=== PATIENT | female | born 1975 | race Caucasian/White ===

== ENCOUNTER 2018-10-08 10:10 | Day surgery (SDC) | payer MEDICARE ==
[~2018-10-08 10:10] MED LIST: ACET325 PO; ALBU90OI INH; ASPI81CH PO; CEFP200 PO; DOC250 PO; Fruity C250 MG PO; HYDR1TAB94 PO; Hair, Skin & N1 EACH PO; Juven1 EACH PO; ONDA4ODT PO; PANT40 PO; POTA20LUD PO; Preparation H C26 GM PO; SACC250C PO; ZINC15 PO
[2018-10-08] MEDS ORDERED: FURO40 PO (21:23)
[2018-10-09] MEDS ORDERED: TIZANIDINE HCL6 MG PO (03:20)
[2018-10-09] MEDS ORDERED: SACC250C PO (16:03)
[2018-10-09] MEDS ORDERED: CEPH500 PO (16:04)
[2018-10-16] MEDS ORDERED: Aspirin EC81 MG PO (17:03)
[2018-10-18] MEDS ORDERED: Geri-Hydrolac140 GM TOP (13:14)
[2018-10-18] MEDS ORDERED: CEPH500 PO (13:15)
[2018-10-18] MEDS ORDERED: FURO40 PO (13:20)
[2018-10-18] MEDS ORDERED: LEVO750 PO (13:21)
[2018-10-18] MEDS ORDERED: K-Dur20 MEQ PO (13:22)
== END 2018-10-08 12:00 | disposition home or self-care (01) ==
LOC: WOUND 10:10
DX: L97.212 Non-pressure chronic ulcer of right calf with fat layer exposed (principal); I87.2 Venous insufficiency (chronic) (peripheral); I73.9 Peripheral vascular disease, unspecified; L03.115 Cellulitis of right lower limb; Z88.0 Allergy status to penicillin; Z88.8 Allergy status to other drugs, medicaments and biological substances; E66.01 Morbid (severe) obesity due to excess calories
CPT/HCPCS: G0463

== ENCOUNTER 2018-10-15 00:34 | Day surgery (SDC) | payer MEDICARE ==
[~2018-10-15 00:34] MED LIST changes: +CEPH500 PO; +FURO40 PO; +TIZANIDINE HCL6 MG PO
[2018-10-16] MEDS ORDERED: Aspirin EC81 MG PO (17:03)
[2018-10-18] MEDS ORDERED: Geri-Hydrolac140 GM TOP (13:14)
[2018-10-18] MEDS ORDERED: CEPH500 PO (13:15)
[2018-10-18] MEDS ORDERED: FURO40 PO (13:20)
[2018-10-18] MEDS ORDERED: LEVO750 PO (13:21)
[2018-10-18] MEDS ORDERED: K-Dur20 MEQ PO (13:22)
== END 2018-10-15 22:35 | disposition home or self-care (01) ==
LOC: WOUND 00:34
DX: L97.212 Non-pressure chronic ulcer of right calf with fat layer exposed (principal); I73.9 Peripheral vascular disease, unspecified; I83.11 Varicose veins of right lower extremity with inflammation; E66.01 Morbid (severe) obesity due to excess calories; Z88.0 Allergy status to penicillin; Z88.8 Allergy status to other drugs, medicaments and biological substances
CPT/HCPCS: G0463

== ENCOUNTER 2018-10-22 00:18 | Day surgery (SDC) | payer MEDICARE, OTHER ==
[~2018-10-22 00:18] MED LIST changes: +Aspirin EC81 MG PO; +Geri-Hydrolac140 GM TOP; +K-Dur20 MEQ PO; +LEVO750 PO
[2018-10-22] MEDS ORDERED: TRAZ50 PO (18:13)
[2018-10-22] MEDS ORDERED: Ferosul325 MG PO (18:13)
[2018-10-22] MEDS ORDERED: LISI5 PO (18:14)
[2018-10-22] MEDS ORDERED: ONDA4 PO (18:15)
[2018-10-22] MEDS ORDERED: Gentak3.5 GM OP (18:16)
[2018-10-22] MEDS ORDERED: Ultram50 MG PO (18:56)
[2018-10-22] MEDS ORDERED: Cleocin HCl300 MG PO (18:56)
== END 2018-10-22 22:39 | disposition home or self-care (01) ==
LOC: WOUND 00:18
DX: Z48.00 Encounter for change or removal of nonsurgical wound dressing (principal); L97.212 Non-pressure chronic ulcer of right calf with fat layer exposed; I87.2 Venous insufficiency (chronic) (peripheral); I73.9 Peripheral vascular disease, unspecified; I83.11 Varicose veins of right lower extremity with inflammation; L03.115 Cellulitis of right lower limb
CPT/HCPCS: G0463

== ENCOUNTER 2018-10-22 13:57 | Emergency (ER) | payer MEDICARE, OTHER ==
[~2018-10-22] VITALS: Ht 167.6 cm; Wt 156.0 kg
[2018-10-22 15:33] LABS: BASOPHILS ABSOLUTE AUTO 0.02 K/mm3 (0.00-0.23); BASOPHILS PERCENT AUTO 0 % (0-2); EOSINOPHILS ABSOLUTE AUTO 0.17 K/mm3 (0.00-0.68); EOSINOPHILS PERCENT AUTO 2 % (0-6); Hematocrit 37.3 % (33.0-51.0); Hemoglobin 10.8 g/dL (11.5-16.0); IMMATURE GRAN ABSOLUTE AUTO 0.03 K/mm3 (0.00-0.10); IMMATURE GRAN PERCENT AUTO 0 % (0-1); LYMPHOCYTES ABSOLUTE AUTO 1.26 K/mm3 (0.84-5.20); LYMPHOCYTES PERCENT AUTO 17 % (21-46); MONOCYTES ABSOLUTE AUTO 0.74 K/mm3 (0.16-1.47); MONOCYTES PERCENT AUTO 10 % (4-13); Mean Corpuscular HGB 23.3 pg (26.0-34.0); Mean Corpuscular Volume 81 fL (80-100); Mean Platelet Volume 10.3 fL (9.1-12.4); NEUTROPHILS ABSOLUTE AUTO 5.36 K/mm3 (1.96-9.15); NEUTROPHILS PERCENT AUTO 71 % (41-73); Platelet Count 317 K/mm3 (150-400); RDW Coefficient Variation 17.2 % (11.7-14.2); RDW Standard Deviation 50.2 fL (35.1-46.3); Red Blood Cell Count 4.63 M/mm3 (3.80-5.20); White Blood Cell Count 7.58 K/mm3 (4.00-11.30)
[2018-10-22 15:46] LABS: Alanine Aminotransfer (ALT/SGP 25 U/L (12-78); Albumin, Blood 3.3 g/dL (3.4-5.0); Albumin/Globulin Ratio 0.7 (0.8-1.8); Alk Phos 120 U/L (50-136); Anion Gap 10 mmol/L (6-16); Aspartate Aminotrans (AST/SGOT 20 U/L (12-37); Bilirubin, Total 0.4 mg/dL (0.1-1.0); Blood Urea Nitrogen 14 mg/dL (8-24); CO2, Blood 24 mmol/L (21-32); Calcium, Blood 8.8 mg/dL (8.5-10.1); Chloride, Blood 108 mmol/L (98-108); Creatinine, Blood 0.64 mg/dL (0.40-1.00); Globulin, Blood 4.7 g/dL (2.2-4.0); Glomerular Filtration Rate >60 (60-); Glucose, Blood 86 mg/dL (70-99); Sodium, Blood 142 mmol/L (136-145)
[2018-10-22] MEDS ORDERED: Ferosul325 MG PO (18:13)
[2018-10-22] MEDS ORDERED: TRAZ50 PO (18:13)
[2018-10-22] MEDS ORDERED: LISI5 PO (18:14)
[2018-10-22] MEDS ORDERED: ONDA4 PO (18:15)
[2018-10-22] MEDS ORDERED: Gentak3.5 GM OP (18:16)
[2018-10-22] MEDS ORDERED: Cleocin HCl300 MG PO (18:56)
[2018-10-22] MEDS ORDERED: Ultram50 MG PO (18:56)
== END 2018-10-22 19:21 | disposition home or self-care (01) ==
LOC: ER 13:57
PROVIDERS: Physician Assistant
DX: L03.115 Cellulitis of right lower limb (principal); E66.01 Morbid (severe) obesity due to excess calories; J44.9 Chronic obstructive pulmonary disease, unspecified; K21.9 Gastro-esophageal reflux disease without esophagitis; Q24.9 Congenital malformation of heart, unspecified; Z88.0 Allergy status to penicillin; Z86.73 Personal history of transient ischemic attack (TIA), and cerebral infarction without residual deficits; Z91.018 Allergy to other foods; Z88.5 Allergy status to narcotic agent; Z88.8 Allergy status to other drugs, medicaments and biological substances; Z79.899 Other long term (current) drug therapy; Z79.82 Long term (current) use of aspirin; Z68.43 Body mass index [BMI] 50.0-59.9, adult
CPT/HCPCS: 36415; 80053; 85025; 99283

== ENCOUNTER 2018-10-24 10:59 | Inpatient (IN) | payer MEDICARE, OTHER ==
[~2018-10-24] VITALS: Ht 167.6 cm; Wt 165.1 kg
[~2018-10-24 10:59] MED LIST changes: +Cleocin HCl300 MG PO; +Ferosul325 MG PO; +Gentak3.5 GM OP; +LISI5 PO; +ONDA4 PO; +TRAZ50 PO; +Ultram50 MG PO
[2018-10-24 14:06] LABS: BASOPHILS ABSOLUTE AUTO 0.03 K/mm3 (0.00-0.23); BASOPHILS PERCENT AUTO 0 % (0-2); EOSINOPHILS ABSOLUTE AUTO 0.17 K/mm3 (0.00-0.68); EOSINOPHILS PERCENT AUTO 2 % (0-6); Hematocrit 32.2 % (33.0-51.0); Hemoglobin 9.2 g/dL (11.5-16.0); IMMATURE GRAN ABSOLUTE AUTO 0.03 K/mm3 (0.00-0.10); IMMATURE GRAN PERCENT AUTO 0 % (0-1); LYMPHOCYTES ABSOLUTE AUTO 1.17 K/mm3 (0.84-5.20); LYMPHOCYTES PERCENT AUTO 17 % (21-46); MONOCYTES ABSOLUTE AUTO 0.51 K/mm3 (0.16-1.47); MONOCYTES PERCENT AUTO 7 % (4-13); Mean Corpuscular HGB 22.8 pg (26.0-34.0); Mean Corpuscular HGB Conc 28.6 g/dL (31.5-36.5); Mean Corpuscular Volume 80 fL (80-100); Mean Platelet Volume 10.3 fL (9.1-12.4); NEUTROPHILS ABSOLUTE AUTO 5.13 K/mm3 (1.96-9.15); NEUTROPHILS PERCENT AUTO 73 % (41-73); Platelet Count 275 K/mm3 (150-400); Red Blood Cell Count 4.03 M/mm3 (3.80-5.20); White Blood Cell Count 7.04 K/mm3 (4.00-11.30)
[2018-10-24 14:24] LABS: Alanine Aminotransfer (ALT/SGP 27 U/L (12-78); Albumin, Blood 3.1 g/dL (3.4-5.0); Albumin/Globulin Ratio 0.7 (0.8-1.8); Alk Phos 114 U/L (50-136); Anion Gap 7 mmol/L (6-16); Aspartate Aminotrans (AST/SGOT 25 U/L (12-37); Bilirubin, Total 0.4 mg/dL (0.1-1.0); Blood Urea Nitrogen 14 mg/dL (8-24); CO2, Blood 27 mmol/L (21-32); Calcium, Blood 8.6 mg/dL (8.5-10.1); Chloride, Blood 107 mmol/L (98-108); Creatinine, Blood 0.64 mg/dL (0.40-1.00); Globulin, Blood 4.3 g/dL (2.2-4.0); Glomerular Filtration Rate >60 (60-); Glucose, Blood 82 mg/dL (70-99); Sodium, Blood 141 mmol/L (136-145); Total Protein, Blood 7.4 g/dL (6.4-8.2)
[2018-10-25 04:43] LABS: BASOPHILS ABSOLUTE AUTO 0.01 K/mm3 (0.00-0.23); BASOPHILS PERCENT AUTO 0 % (0-2); EOSINOPHILS ABSOLUTE AUTO 0.22 K/mm3 (0.00-0.68); EOSINOPHILS PERCENT AUTO 5 % (0-6); Hematocrit 27.8 % (33.0-51.0); IMMATURE GRAN ABSOLUTE AUTO 0.01 K/mm3 (0.00-0.10); IMMATURE GRAN PERCENT AUTO 0 % (0-1); LYMPHOCYTES ABSOLUTE AUTO 0.67 K/mm3 (0.84-5.20); LYMPHOCYTES PERCENT AUTO 14 % (21-46); MONOCYTES ABSOLUTE AUTO 0.39 K/mm3 (0.16-1.47); MONOCYTES PERCENT AUTO 8 % (4-13); Mean Corpuscular HGB 22.9 pg (26.0-34.0); Mean Corpuscular HGB Conc 28.8 g/dL (31.5-36.5); Mean Corpuscular Volume 79 fL (80-100); Mean Platelet Volume 10.2 fL (9.1-12.4); NEUTROPHILS ABSOLUTE AUTO 3.59 K/mm3 (1.96-9.15); NEUTROPHILS PERCENT AUTO 73 % (41-73); Platelet Count 244 K/mm3 (150-400); RDW Coefficient Variation 17.2 % (11.7-14.2); RDW Standard Deviation 49.3 fL (35.1-46.3); White Blood Cell Count 4.89 K/mm3 (4.00-11.30)
[2018-10-25 08:14] LABS: Anion Gap 8 mmol/L (6-16); Blood Urea Nitrogen 13 mg/dL (8-24); Bun/Creatinine Ratio 20.4 (12.0-20.0); CO2, Blood 26 mmol/L (21-32); Calcium, Blood 8.2 mg/dL (8.5-10.1); Chloride, Blood 108 mmol/L (98-108); Creatinine, Blood 0.64 mg/dL (0.40-1.00); Glomerular Filtration Rate >60 (60-); Glucose, Blood 110 mg/dL (70-99); Potassium, Blood 3.9 mmol/L (3.5-5.5); Sodium, Blood 142 mmol/L (136-145)
[2018-10-26 16:33] LABS: Vancomycin, Trough 26.5 ug/mL (5.0-10.0)
[2018-10-26 19:37] LABS: Source, Urine Clean Catch
[2018-10-26 19:48] LABS: Appearance, Urine Clear (Clear); Bilirubin, Urine Neg (Neg); Blood, Urine Neg (Neg); Color, Urine Yellow (P-Yellow); Glucose Qualitative, Urine Neg (Neg); Ketones, Urine Neg (Neg); Leukocyte Esterase, Urine Neg (Neg); Nitrite, Urine Neg (Neg); Protein, Urine Neg (Neg); Specific Gravity, Urine 1.015 (1.003-1.022); Urobilinogen, Urine NORM (Normal); pH, Urine 6.5 (5.0-8.0)
[2018-10-27 22:18] LABS: Vancomycin, Trough 18.1 ug/mL (5.0-10.0)
[2018-10-28 06:04] LABS: BASOPHILS ABSOLUTE AUTO 0.02 K/mm3 (0.00-0.23); BASOPHILS PERCENT AUTO 0 % (0-2); EOSINOPHILS ABSOLUTE AUTO 0.19 K/mm3 (0.00-0.68); EOSINOPHILS PERCENT AUTO 3 % (0-6); Hemoglobin 8.5 g/dL (11.5-16.0); IMMATURE GRAN ABSOLUTE AUTO 0.04 K/mm3 (0.00-0.10); IMMATURE GRAN PERCENT AUTO 1 % (0-1); LYMPHOCYTES ABSOLUTE AUTO 0.79 K/mm3 (0.84-5.20); LYMPHOCYTES PERCENT AUTO 12 % (21-46); MONOCYTES ABSOLUTE AUTO 0.53 K/mm3 (0.16-1.47); MONOCYTES PERCENT AUTO 8 % (4-13); Mean Corpuscular HGB Conc 28.3 g/dL (31.5-36.5); Mean Corpuscular Volume 81 fL (80-100); Mean Platelet Volume 10.2 fL (9.1-12.4); NEUTROPHILS ABSOLUTE AUTO 4.86 K/mm3 (1.96-9.15); NEUTROPHILS PERCENT AUTO 76 % (41-73); Platelet Count 248 K/mm3 (150-400); RDW Coefficient Variation 17.2 % (11.7-14.2); RDW Standard Deviation 50.1 fL (35.1-46.3); White Blood Cell Count 6.43 K/mm3 (4.00-11.30)
[2018-10-28 06:21] LABS: Anion Gap 8 mmol/L (6-16); Blood Urea Nitrogen 15 mg/dL (8-24); Bun/Creatinine Ratio 24.3 (12.0-20.0); CO2, Blood 25 mmol/L (21-32); Calcium, Blood 8.3 mg/dL (8.5-10.1); Chloride, Blood 105 mmol/L (98-108); Creatinine, Blood 0.62 mg/dL (0.40-1.00); Glomerular Filtration Rate >60 (60-); Glucose, Blood 110 mg/dL (70-99); Sodium, Blood 138 mmol/L (136-145)
[2018-10-29 08:24] LABS: Vancomycin, Trough 4.5 ug/mL (5.0-10.0)
[2018-10-31 05:07] LABS: BASOPHILS ABSOLUTE AUTO 0.01 K/mm3 (0.00-0.23); BASOPHILS PERCENT AUTO 0 % (0-2); EOSINOPHILS ABSOLUTE AUTO 0.19 K/mm3 (0.00-0.68); EOSINOPHILS PERCENT AUTO 3 % (0-6); Hematocrit 29.2 % (33.0-51.0); Hemoglobin 8.5 g/dL (11.5-16.0); IMMATURE GRAN ABSOLUTE AUTO 0.02 K/mm3 (0.00-0.10); IMMATURE GRAN PERCENT AUTO 0 % (0-1); LYMPHOCYTES ABSOLUTE AUTO 0.83 K/mm3 (0.84-5.20); LYMPHOCYTES PERCENT AUTO 14 % (21-46); MONOCYTES ABSOLUTE AUTO 0.61 K/mm3 (0.16-1.47); MONOCYTES PERCENT AUTO 10 % (4-13); Mean Corpuscular HGB 23.3 pg (26.0-34.0); Mean Corpuscular HGB Conc 29.1 g/dL (31.5-36.5); Mean Corpuscular Volume 80 fL (80-100); Mean Platelet Volume 10.2 fL (9.1-12.4); NEUTROPHILS ABSOLUTE AUTO 4.21 K/mm3 (1.96-9.15); NEUTROPHILS PERCENT AUTO 72 % (41-73); Platelet Count 244 K/mm3 (150-400); RDW Coefficient Variation 17.2 % (11.7-14.2); RDW Standard Deviation 49.6 fL (35.1-46.3); Red Blood Cell Count 3.65 M/mm3 (3.80-5.20); White Blood Cell Count 5.87 K/mm3 (4.00-11.30)
[2018-10-31 05:28] LABS: Anion Gap 8 mmol/L (6-16); Blood Urea Nitrogen 18 mg/dL (8-24); Bun/Creatinine Ratio 28.5 (12.0-20.0); CO2, Blood 28 mmol/L (21-32); Calcium, Blood 8.5 mg/dL (8.5-10.1); Chloride, Blood 103 mmol/L (98-108); Creatinine, Blood 0.63 mg/dL (0.40-1.00); Glomerular Filtration Rate >60 (60-); Glucose, Blood 97 mg/dL (70-99); Potassium, Blood 3.8 mmol/L (3.5-5.5); Sodium, Blood 139 mmol/L (136-145)
[2018-11-01] MEDS ORDERED: K-TAB ER20 MEQ PO (11:45)
[2018-11-01] MEDS ORDERED: TRAM50 PO (11:46)
[2018-11-01] MEDS ORDERED: Juven1 EACH PO (11:47)
[2018-11-01] MEDS ORDERED: Pedi-Dri 100,0060 GM TOP (11:48)
[2018-11-01] MEDS ORDERED: UNNA-FLEX1 EACH TOP (11:48)
== END 2018-11-01 16:00 | disposition home or self-care (01) | DRG 603 ==
LOC: ER 10:59 → MEDS 14:47 → ENPENDDIS 11-01 10:00 → MEDS 11-01 16:00
PROVIDERS: Emergency Medicine; Hospitalist; Internal Medicine
DX: L03.115 Cellulitis of right lower limb (principal); Z68.43 Body mass index [BMI] 50.0-59.9, adult; L97.919 Non-pressure chronic ulcer of unspecified part of right lower leg with unspecified severity; I89.0 Lymphedema, not elsewhere classified; E66.01 Morbid (severe) obesity due to excess calories; J44.9 Chronic obstructive pulmonary disease, unspecified; Q24.9 Congenital malformation of heart, unspecified; K44.9 Diaphragmatic hernia without obstruction or gangrene; K21.9 Gastro-esophageal reflux disease without esophagitis; K52.9 Noninfective gastroenteritis and colitis, unspecified; D50.9 Iron deficiency anemia, unspecified; Z86.14 Personal history of Methicillin resistant Staphylococcus aureus infection; Z79.82 Long term (current) use of aspirin
CPT/HCPCS: 36415; 73590; 73610; 80048; 80053; 80202; 81003; 82565; 83605; 85025; 87040; 87070; 87205; 93922; 94640; 94760; 96365; 96366; 99283; 99284-25; G0463; J0696; J1650; J1956; J3370; J7050

== ENCOUNTER 2018-11-12 14:34 | Emergency (ER) | payer MEDICARE, OTHER ==
[~2018-11-12] VITALS: Ht 167.6 cm; Wt 154.2 kg
[~2018-11-12 14:34] MED LIST changes: +K-TAB ER20 MEQ PO; +Pedi-Dri 100,0060 GM TOP; +TRAM50 PO; +UNNA-FLEX1 EACH TOP
[2018-11-12 15:22] LABS: BASOPHILS ABSOLUTE AUTO 0.03 K/mm3 (0.00-0.23); BASOPHILS PERCENT AUTO 0 % (0-2); EOSINOPHILS ABSOLUTE AUTO 0.19 K/mm3 (0.00-0.68); EOSINOPHILS PERCENT AUTO 3 % (0-6); Hematocrit 36.5 % (33.0-51.0); Hemoglobin 10.5 g/dL (11.5-16.0); IMMATURE GRAN ABSOLUTE AUTO 0.04 K/mm3 (0.00-0.10); IMMATURE GRAN PERCENT AUTO 1 % (0-1); LYMPHOCYTES ABSOLUTE AUTO 1.09 K/mm3 (0.84-5.20); LYMPHOCYTES PERCENT AUTO 14 % (21-46); MONOCYTES ABSOLUTE AUTO 0.61 K/mm3 (0.16-1.47); MONOCYTES PERCENT AUTO 8 % (4-13); Mean Corpuscular HGB 23.5 pg (26.0-34.0); Mean Corpuscular HGB Conc 28.8 g/dL (31.5-36.5); Mean Corpuscular Volume 82 fL (80-100); NEUTROPHILS ABSOLUTE AUTO 5.69 K/mm3 (1.96-9.15); NEUTROPHILS PERCENT AUTO 74 % (41-73); Platelet Count 262 K/mm3 (150-400); RDW Coefficient Variation 17.2 % (11.7-14.2); RDW Standard Deviation 49.3 fL (35.1-46.3); Red Blood Cell Count 4.47 M/mm3 (3.80-5.20); White Blood Cell Count 7.65 K/mm3 (4.00-11.30)
[2018-11-12 15:49] LABS: Alanine Aminotransfer (ALT/SGP 33 U/L (12-78); Albumin, Blood 3.4 g/dL (3.4-5.0); Albumin/Globulin Ratio 0.7 (0.8-1.8); Alk Phos 128 U/L (50-136); Anion Gap 9 mmol/L (6-16); Aspartate Aminotrans (AST/SGOT 27 U/L (12-37); Bilirubin, Total 0.4 mg/dL (0.1-1.0); Blood Urea Nitrogen 18 mg/dL (8-24); Bun/Creatinine Ratio 25.5 (12.0-20.0); CO2, Blood 23 mmol/L (21-32); Chloride, Blood 106 mmol/L (98-108); Creatinine, Blood 0.71 mg/dL (0.40-1.00); Globulin, Blood 4.7 g/dL (2.2-4.0); Glomerular Filtration Rate >60 (60-); Glucose, Blood 96 mg/dL (70-99); Potassium, Blood 3.8 mmol/L (3.5-5.5); Sodium, Blood 138 mmol/L (136-145); Total Protein, Blood 8.1 g/dL (6.4-8.2)
[2018-11-12 16:39] LABS: Source, Urine Clean Catch
[2018-11-12 16:41] LABS: Appearance, Urine Hazy (Clear); Bilirubin, Urine Neg (Neg); Blood, Urine Neg (Neg); Color, Urine Yellow (P-Yellow); Glucose Qualitative, Urine Neg (Neg); Ketones, Urine 1+ (Neg); Leukocyte Esterase, Urine 2+ (Neg); Nitrite, Urine Neg (Neg); Protein, Urine 2+ (Neg); Urobilinogen, Urine NORM (Normal)
[2018-11-12 16:43] LABS: Bacteria Mod /hpf; Red Blood Cells, Urine 0-2 /hpf (0-2); Squamous Epithelial Cells Few /hpf (Few)
[2018-11-12] MEDS ORDERED: HYDR1TAB94 PO (17:29)
[2018-11-12] MEDS ORDERED: Tylenol325 MG PO (17:29)
== END 2018-11-12 17:55 | disposition home or self-care (01) ==
LOC: ER 14:34
PROVIDERS: Emergency Medicine; Physician Assistant
DX: I89.0 Lymphedema, not elsewhere classified (principal); K21.9 Gastro-esophageal reflux disease without esophagitis; J44.9 Chronic obstructive pulmonary disease, unspecified; E66.01 Morbid (severe) obesity due to excess calories; Z86.73 Personal history of transient ischemic attack (TIA), and cerebral infarction without residual deficits; Z88.0 Allergy status to penicillin; Z88.8 Allergy status to other drugs, medicaments and biological substances; Z88.5 Allergy status to narcotic agent; Z79.82 Long term (current) use of aspirin; Z79.899 Other long term (current) drug therapy
CPT/HCPCS: 36415; 80053; 81001; 85025; 87077; 87086; 87186; 99283

== ENCOUNTER 2018-11-18 00:53 | Day surgery (SDC) | payer MEDICARE, OTHER ==
[~2018-11-18 00:53] MED LIST changes: +Tylenol325 MG PO
== END 2018-11-18 22:34 | disposition home or self-care (01) ==
LOC: WOUND 00:53
DX: L03.115 Cellulitis of right lower limb (principal); M79.661 Pain in right lower leg; I83.11 Varicose veins of right lower extremity with inflammation; I73.9 Peripheral vascular disease, unspecified; Z79.01 Long term (current) use of anticoagulants
CPT/HCPCS: G0463

== ENCOUNTER 2018-11-25 13:03 | Emergency (ER) | payer MEDICARE, OTHER ==
[~2018-11-25] VITALS: Ht 167.6 cm; Wt 154.2 kg
[2018-11-25 14:04] LABS: BASOPHILS ABSOLUTE AUTO 0.02 K/mm3 (0.00-0.23); BASOPHILS PERCENT AUTO 0 % (0-2); EOSINOPHILS ABSOLUTE AUTO 0.13 K/mm3 (0.00-0.68); EOSINOPHILS PERCENT AUTO 2 % (0-6); Hematocrit 37.2 % (33.0-51.0); Hemoglobin 10.9 g/dL (11.5-16.0); IMMATURE GRAN ABSOLUTE AUTO 0.02 K/mm3 (0.00-0.10); IMMATURE GRAN PERCENT AUTO 0 % (0-1); LYMPHOCYTES ABSOLUTE AUTO 0.99 K/mm3 (0.84-5.20); LYMPHOCYTES PERCENT AUTO 14 % (21-46); MONOCYTES ABSOLUTE AUTO 0.51 K/mm3 (0.16-1.47); MONOCYTES PERCENT AUTO 7 % (4-13); Mean Corpuscular HGB 23.3 pg (26.0-34.0); Mean Corpuscular HGB Conc 29.3 g/dL (31.5-36.5); Mean Corpuscular Volume 80 fL (80-100); Mean Platelet Volume 9.7 fL (9.1-12.4); NEUTROPHILS ABSOLUTE AUTO 5.37 K/mm3 (1.96-9.15); NEUTROPHILS PERCENT AUTO 76 % (41-73); Platelet Count 320 K/mm3 (150-400); RDW Coefficient Variation 16.5 % (11.7-14.2); RDW Standard Deviation 47.2 fL (35.1-46.3); Red Blood Cell Count 4.68 M/mm3 (3.80-5.20); White Blood Cell Count 7.04 K/mm3 (4.00-11.30)
[2018-11-25 14:29] LABS: Alanine Aminotransfer (ALT/SGP 31 U/L (12-78); Albumin, Blood 3.3 g/dL (3.4-5.0); Albumin/Globulin Ratio 0.7 (0.8-1.8); Alk Phos 125 U/L (50-136); Anion Gap 9 mmol/L (6-16); Aspartate Aminotrans (AST/SGOT 22 U/L (12-37); Bilirubin, Total 0.9 mg/dL (0.1-1.0); Blood Urea Nitrogen 9 mg/dL (8-24); Bun/Creatinine Ratio 13.8 (12.0-20.0); CO2, Blood 27 mmol/L (21-32); Calcium, Blood 8.8 mg/dL (8.5-10.1); Chloride, Blood 105 mmol/L (98-108); Creatinine, Blood 0.65 mg/dL (0.40-1.00); Globulin, Blood 4.9 g/dL (2.2-4.0); Glomerular Filtration Rate >60 (60-); Glucose, Blood 91 mg/dL (70-99); Potassium, Blood 3.4 mmol/L (3.5-5.5); Sodium, Blood 141 mmol/L (136-145); Total Protein, Blood 8.2 g/dL (6.4-8.2)
== END 2018-11-25 18:29 | disposition home or self-care (01) ==
LOC: ER 13:03
PROVIDERS: Physician Assistant
DX: I89.0 Lymphedema, not elsewhere classified (principal); M79.89 Other specified soft tissue disorders; E66.01 Morbid (severe) obesity due to excess calories; R10.13 Epigastric pain; R11.2 Nausea with vomiting, unspecified; J44.9 Chronic obstructive pulmonary disease, unspecified; Z88.0 Allergy status to penicillin; Z88.5 Allergy status to narcotic agent; Z88.8 Allergy status to other drugs, medicaments and biological substances; Z79.899 Other long term (current) drug therapy; Z79.82 Long term (current) use of aspirin; Z87.891 Personal history of nicotine dependence; Z68.43 Body mass index [BMI] 50.0-59.9, adult
CPT/HCPCS: 36415; 80053; 85025; 96374; 99284-25; J2405

== ENCOUNTER 2018-11-28 13:15 | Inpatient (IN) | payer MEDICARE, OTHER ==
[~2018-11-28] VITALS: Ht 167.6 cm; Wt 160.9 kg
[2018-11-28 13:41] LABS: Source, Urine Peds U Bag
[2018-11-28 13:52] LABS: Appearance, Urine Hazy (Clear); Bilirubin, Urine Neg (Neg); Blood, Urine Neg (Neg); Color, Urine Yellow (P-Yellow); Glucose Qualitative, Urine Neg (Neg); Ketones, Urine 1+ (Neg); Leukocyte Esterase, Urine 1+ (Neg); Nitrite, Urine Neg (Neg); Protein, Urine 2+ (Neg); Specific Gravity, Urine 1.025 (1.003-1.022); Urobilinogen, Urine 2+ (Normal); pH, Urine 6.5 (5.0-8.0)
[2018-11-28 14:40] LABS: Calcium Oxalate Crystals Many /hpf; Red Blood Cells, Urine 0-2 /hpf (0-2)
[2018-11-28 14:41] LABS: Bacteria Few /hpf; Squamous Epithelial Cells Few /hpf (Few)
[2018-11-28 15:22] LABS: BASOPHILS ABSOLUTE AUTO 0.02 K/mm3 (0.00-0.23); BASOPHILS PERCENT AUTO 0 % (0-2); EOSINOPHILS ABSOLUTE AUTO 0.15 K/mm3 (0.00-0.68); EOSINOPHILS PERCENT AUTO 2 % (0-6); Hematocrit 37.6 % (33.0-51.0); Hemoglobin 10.9 g/dL (11.5-16.0); IMMATURE GRAN ABSOLUTE AUTO 0.02 K/mm3 (0.00-0.10); IMMATURE GRAN PERCENT AUTO 0 % (0-1); LYMPHOCYTES PERCENT AUTO 16 % (21-46); MONOCYTES ABSOLUTE AUTO 0.44 K/mm3 (0.16-1.47); MONOCYTES PERCENT AUTO 7 % (4-13); Mean Corpuscular HGB 23.2 pg (26.0-34.0); Mean Corpuscular Volume 80 fL (80-100); NEUTROPHILS ABSOLUTE AUTO 4.59 K/mm3 (1.96-9.15); NEUTROPHILS PERCENT AUTO 74 % (41-73); Platelet Count 301 K/mm3 (150-400); RDW Coefficient Variation 16.1 % (11.7-14.2); RDW Standard Deviation 46.9 fL (35.1-46.3); Red Blood Cell Count 4.69 M/mm3 (3.80-5.20); White Blood Cell Count 6.22 K/mm3 (4.00-11.30)
[2018-11-28 15:51] LABS: Alanine Aminotransfer (ALT/SGP 34 U/L (12-78); Albumin, Blood 3.2 g/dL (3.4-5.0); Albumin/Globulin Ratio 0.7 (0.8-1.8); Alk Phos 142 U/L (50-136); Anion Gap 8 mmol/L (6-16); Aspartate Aminotrans (AST/SGOT 31 U/L (12-37); Bilirubin, Total 0.5 mg/dL (0.1-1.0); Blood Urea Nitrogen 14 mg/dL (8-24); Bun/Creatinine Ratio 18.3 (12.0-20.0); CO2, Blood 25 mmol/L (21-32); Calcium, Blood 8.8 mg/dL (8.5-10.1); Chloride, Blood 107 mmol/L (98-108); Creatinine, Blood 0.77 mg/dL (0.40-1.00); Globulin, Blood 4.7 g/dL (2.2-4.0); Glomerular Filtration Rate >60 (60-); Glucose, Blood 85 mg/dL (70-99); Potassium, Blood 3.9 mmol/L (3.5-5.5); Sodium, Blood 140 mmol/L (136-145); Total Protein, Blood 7.9 g/dL (6.4-8.2)
[2018-11-28] MEDS ORDERED: FURO20 PO (16:19)
--- NOTE | 2018-11-28 18:45 | NUR ---
RECIEVED REPORT FROM ED RN WILLIAM. PER REPORT PT HAS BLISTERS THAT HAVE OPENED AND SATURATED THE PT WHOLE BED. PT IS VERY LARGE AND ASKED ED TO HOLD THE PT UNTIL A BARIATRIC BED CAN BE LOCATED. [facility] TO TRY TO LOCATE A BARIATRIC BED. WILL PASS ON THE REPORT RECIEVED TO THE NIGHT RN.
[2018-11-28] MEDS ORDERED: CYCL10 PO (19:58)
[2018-11-29 05:35] LABS: BASOPHILS ABSOLUTE AUTO 0.01 K/mm3 (0.00-0.23); BASOPHILS PERCENT AUTO 0 % (0-2); EOSINOPHILS ABSOLUTE AUTO 0.15 K/mm3 (0.00-0.68); EOSINOPHILS PERCENT AUTO 3 % (0-6); Hematocrit 29.4 % (33.0-51.0); Hemoglobin 8.4 g/dL (11.5-16.0); IMMATURE GRAN ABSOLUTE AUTO 0.02 K/mm3 (0.00-0.10); IMMATURE GRAN PERCENT AUTO 1 % (0-1); LYMPHOCYTES ABSOLUTE AUTO 0.75 K/mm3 (0.84-5.20); LYMPHOCYTES PERCENT AUTO 17 % (21-46); MONOCYTES ABSOLUTE AUTO 0.55 K/mm3 (0.16-1.47); MONOCYTES PERCENT AUTO 13 % (4-13); Mean Corpuscular HGB 22.6 pg (26.0-34.0); Mean Corpuscular HGB Conc 28.6 g/dL (31.5-36.5); Mean Corpuscular Volume 79 fL (80-100); Mean Platelet Volume 10.4 fL (9.1-12.4); NEUTROPHILS ABSOLUTE AUTO 2.89 K/mm3 (1.96-9.15); NEUTROPHILS PERCENT AUTO 66 % (41-73); Platelet Count 249 K/mm3 (150-400); RDW Coefficient Variation 16.4 % (11.7-14.2); RDW Standard Deviation 46.6 fL (35.1-46.3); Red Blood Cell Count 3.72 M/mm3 (3.80-5.20); White Blood Cell Count 4.37 K/mm3 (4.00-11.30)
[2018-11-29 06:03] LABS: Anion Gap 8 mmol/L (6-16); Blood Urea Nitrogen 14 mg/dL (8-24); Bun/Creatinine Ratio 22.8 (12.0-20.0); CO2, Blood 25 mmol/L (21-32); Calcium, Blood 8.1 mg/dL (8.5-10.1); Chloride, Blood 109 mmol/L (98-108); Creatinine, Blood 0.61 mg/dL (0.40-1.00); Glomerular Filtration Rate >60 (60-); Glucose, Blood 110 mg/dL (70-99); Potassium, Blood 3.7 mmol/L (3.5-5.5); Sodium, Blood 142 mmol/L (136-145)
--- NOTE | 2018-11-29 08:04 | NUR ---
SHIFT SUMMARY PT ARRIVED TO ROOM APPROX 1999. C/O PAIN IN R LEG AND MEDICATED PER EMAR X2. SBA TO BA. PICS OF LEG DOCUMENTED IN CHART. SHE WAS ABLE TO DOZE ON AND OFF T/O NOC. CALLS APPROPRIATELY. SOMEWHAT FLAT AFFECT. CALL LIGHT IN REACH
--- NOTE | 2018-11-29 18:12 | NUR ---
PATIENT HAS REQUESTED AND WAS GIVEN PAIN MEDS FOR HER LEGS. SHE IS PLEASANT AND COOPERATIVE WITH CARES. SHE HAS BEEN AMBULATING TO THE RESTROOM WITH SBA. NO NEW CHANGES TO HER CONDITION.
[2018-11-30 06:03] LABS: Hematocrit 28.3 % (33.0-51.0); Hemoglobin 8.2 g/dL (11.5-16.0); Mean Corpuscular HGB 23.4 pg (26.0-34.0); Mean Corpuscular Volume 81 fL (80-100); Mean Platelet Volume 9.8 fL (9.1-12.4); Platelet Count 208 K/mm3 (150-400); RDW Coefficient Variation 16.2 % (11.7-14.2); RDW Standard Deviation 47.7 fL (35.1-46.3); White Blood Cell Count 4.88 K/mm3 (4.00-11.30)
--- NOTE | 2018-11-30 06:17 | NUR ---
SHIFT SUMMARY PT A/O SBA TO BA. C/O PAIN IN LEG AND MEDICATED PER EMAR X2. SHE WAS ABLE TO SLEEP THROUGH THE NIGHT. CALL LIGHT IN REACH
[2018-11-30 06:27] LABS: Vancomycin, Trough 13.7 ug/mL (5.0-10.0)
--- NOTE | 2018-11-30 19:39 | NUR ---
IV- UNABLE TO FLUSH- RED STREAK AND TENDERNESS- UNABLE TO HANG 1800 MEDS WITH NO IV ACCESS. 2 RN'S ATTEMPTED AND UNSUCESFUL- AWAITING TO SECURE IV BEFORE BEING ABLE TO ADMIN IV ABX.
--- NOTE | 2018-11-30 19:44 | NUR ---
SUMMARY- PT A/O X3, USES CALL LIGHT APPROPRIATELY. GETS UP AMBULATES SBA TO BATHROOM SLOW STEADY GAIT. WOULD WAS HANNAH THIS AM AND DRIPPING LG AMOUNTS OF SEROUS FLUIDS ON THE GROUND. DR DEL CASTILLO AGREED TO HAVE DRESSING ORDERED. WASHED AREA GENTLY AND PLACED VASALINE GAUZE WITH ABD AND EXUDRY AT 1100 AND AGAIN AT 1830, SATURATED THROUGH DRESSING AND AIRBED PAD. GOT A INCREASE ON THE FREQ OF VICODIN- MEDICATED WITH ONE Q4- PT STATES MIN RELEIF DOWN TO 7/10 AT LOWEST- NO OVERT SS OF PAIN- ONLY COMPLAINS IF ASKED WHAT HER PAIN # IS. IV NOT FLUSHING THIS PM AND UNABLE TO START ANOTHER ONE. IV ABX ON HOLD UNTIL SITE SECURES.
--- NOTE | 2018-12-01 07:13 | NUR ---
SHIFT SUMMARY UNABLE TO GAIN IV ACCESS FOR 1800 IV MEDS. MEDICATED FOR PAIN X1. SHE WAS ABLE TO SLEEP THROUGH NIGHT. INDEPENDENT TO BA. DRESSING CHANGED. CALL LIGHT IN REACH
--- NOTE | 2018-12-01 17:59 | NUR ---
SHIFT SUMMARY PT HAS BEEN SLEEPING A LOT OF THE SHIFT. MEDICATED FOR PAIN X2 THIS SHIFT. DRESSING CHANGED TO RLE THIS AFTERNOON. WOUND DRAINING LARGE AMOUNTS OF SEROSANGUINEOUS FLUID. NO ACUTE CHANGES THIS SHIFT. PT INDEPENDENT IN ROOM. CALL LIGHT IN REACH. WILL CONTINUE TO MONITOR AND REPORT TO ONCOMING RN.
--- NOTE | 2018-12-02 05:27 | NUR ---
RN NOC SHIFT SUMMARY PT WAS SITTING UP AND WATCHING TV EARLY THIS NIGHT. HER DRESSINGS WERE CHANGED/WOUND CLEANSED PER INSTRUCTIONS AND WOUND WAS ASSESSED. SHE TOLERATED PRODEEDURE WELL. SHE WAS TREATED PHARMACOLOGICALLY WITH NORCO FOR PAIN WITH SUCCESS. SHE WAS ABLE TO SLEEP THROUGH THE NIGHT. CALL LIGHT WITHIN REACH WILL CONTINUE TO MONITOR. /TEA
[2018-12-02 06:03] LABS: Vancomycin, Trough 16.3 ug/mL (5.0-10.0)
--- NOTE | 2018-12-02 17:26 | NUR ---
SHIFT SUMMARY PT HAS HAD NO ACUTE CHANGES THIS SHIFT. MEDICATED FOR PAIN PER EMAR. PT UP INDEPENDENTLY IN ROOM. THIS RN HAS CHANGED DRESSING TO RLE SEVERAL TIMES DUE TO LARGE AMOUNTS OF DRAINGAGE. IV INFILTRATED THIS AM AND ORDERS WERE GIVEN TO LEAVE IV OUT. NO DISTRESS. CALL LIGHT IN REACH. WILL CONTINUE TO MONITOR AND REPORT TO ONCOMING RN.
--- NOTE | 2018-12-03 06:50 | NUR ---
SHIFT SUMMARY PT IS A 42 Y/O FEMALE, ADMITTED FOR RLE CELLULITIS. SHE IS A&O X 3, AND INDEPENDENT IN THE ROOM. HER WOUND DRESSING WAS CHANGED ONCE DURING THE NIGHT, IT WAS SATURATED. SHE REPORTED PAIN IN THAT LEG, FOR WHICH SHE WAS MEDICATED X2 WITH PRN NORCO. SHE DENIED ANY COMPLAINTS OF NAUSEA OR SOB. VITAL SIGNS STABLE. NO OTHER ACUTE CHANGES IN PT CONDITION NOTED. WILL CONTINUE TO MONITOR AND TREAT PER EMAR UNTIL HAND OFF TO DAY SHIFT.
--- NOTE | 2018-12-03 15:56 | NUR ---
Called by RN to come to room to assist with completion of a POLST and AD. Pt had been told by staff that when her Aunt arrived they could request help to complete AD & did. Pt's AUNT is Abbi Mcclellan and she is pt's choice of a surrogate decision maker and POA for HC. Her PH # is [phone]. I had not received a Palliative Care referral for this pt prior to RN's request today. Pt lives with her Aunt who is WC bound. I was not able to do a s/s assessment or full discussion of pt's needs at this time. Pt requests to complete an advanced directive because she spent time with her very ill mother at [facility] and said her mother was intubated and had CPR even though she had told providers she did not want either. We discussed both the POLST and AD forms. Instructions given for obtaining witnesses for AD and how to complete. I recommended that pt and Abbi take some time to discuss and get input from pt's PCP regarding advanced care planning and treatments that would be recommended or appropriate. They agree to continue working on the AD but are adamant about making sure her current orders for code status are in agreement with pt's wishes and they want to complete the POLST at this time. Pt is unable to read per pt and Aunt. I read all sections of the POLST aloud and answered questions as we went. Pt states she does not want CPR or intubation under any circumstances. She does not want artificial feeding by tube. She does want limited treatment and would accept noninvasive respiratory support if needed for a short time. Her POLST was completed according to her wishes and signed by the pt. I explained that once signed by the Dr we would copy and have scanned into her medical records here but that she would retain the Donay[place] pink copy. I asked her to be sure that her PCP and the hospital had copies of the AD once completed and that she take her POLST to her next Dr's cass with her PCP so they can copy and place in her chart. Pt and Aunt verbalized understanding. RN updated on my visit and POLST placed on chart for Dr avila. RN will call Dr and request orders for DNR/DNI per pt request.
--- NOTE | 2018-12-03 19:30 | NUR ---
SHIFT SUMMARY PT INDEPENDENT IN ROOM. SHOWER TAKEN TODAY AND TOLERATED WITHOUT PROBLEM. DRESSING CHANGED TO RLE AFTER SHOWER AND PT REPORTS AT END OF SHIFT THERE WAS STILL NO BREAKTHROUGH DRAINAGE. POTENTIAL PLANS TO GO HOME TOMORROW.
--- NOTE | 2018-12-04 05:21 | NUR ---
SHIFT SUMMARY PT SLEEPING DURING SHIFT REPORT, WITH RLE ELEVATED ON PILLOW. WOKE EASILY FOR CARE. ADMITTED FOR RLE CELLULITIS. DRSG IN PLACE, C/D/I. PT MORBIDLY OBESE, BUT INDEPENDANT IN RM. WOKE FOR HS MEDS, SNACKS AND FLUIDS GIVEN. PT AWAKE LATER IN SHIFT AND REPORTED RLE BISTERS STARTING TO WEEP THRU DRSG. NEW DRSG PLACED PER ORDERS. PT THEN ASSISTED WITH ELEVATING IT AGAIN ON PILLOWS. MEDICATED X1 FOR C/O PAIN. PT HAS CONTINUED TO SLEEP SINCE THEN. POSSIBLE D/C HOME TODAY. CALL LT IN REACH. ABLE TO MAKE NEEDS KNOWN.
--- NOTE | 2018-12-04 06:09 | NUR ---
I dont know how to use the bed to do a weight. its the bariatric bed
[2018-12-04] MEDS ORDERED: CEFU250T47 PO (12:23)
[2018-12-04] MEDS ORDERED: DOXY100 PO (12:24)
[2018-12-04] MEDS ORDERED: ACIDOPHILUS1 EAC1 PO (12:24)
[2018-12-04] MEDS ORDERED: HYDR1TAB94 PO (12:25)
[2018-12-04] MEDS ORDERED: RISP.5 PO (12:25)
--- NOTE | 2018-12-04 15:30 | NUR ---
DISCHARGE INSTRUCTIONS COMPLETED AND DISCUSSED WITH PT EXPRESSING UNDERSTANDING. APPT MADE FOR WOUND CLINIC. DRESSING CHANGED TO RLE AT 1130 WITH SEVERAL ALLEVYN APPLIED. POSTERIOR CALF WAS SQUIRTING SEROUS FLUID FROM SMALL HOLES IN SKIN. SITE SENSITIVE TO TOUCH. SCRIPTS FAXED TO [facility] PER PT REQUEST. TO [facility] VIA W/C.
== END 2018-12-04 15:10 | disposition home or self-care (01) | DRG 603 ==
LOC: ER 13:15 → MEDS 17:26
PROVIDERS: Internal Medicine; Pharmacist; Physician Assistant; ADMIT Internal Medicine Endocrinology, Diabetes & Metabolism
DX: L03.115 Cellulitis of right lower limb (principal); N39.0 Urinary tract infection, site not specified; Z68.43 Body mass index [BMI] 50.0-59.9, adult; E66.01 Morbid (severe) obesity due to excess calories; G25.81 Restless legs syndrome; D63.8 Anemia in other chronic diseases classified elsewhere; I89.0 Lymphedema, not elsewhere classified; F89 Unspecified disorder of psychological development; B96.4 Proteus (mirabilis) (morganii) as the cause of diseases classified elsewhere; Z88.1 Allergy status to other antibiotic agents; Z88.5 Allergy status to narcotic agent; Z88.0 Allergy status to penicillin; Z79.82 Long term (current) use of aspirin; Z79.899 Other long term (current) drug therapy; Z87.891 Personal history of nicotine dependence; Z86.14 Personal history of Methicillin resistant Staphylococcus aureus infection
CPT/HCPCS: 36415; 73590; 80048; 80053; 80202; 81001; 84443; 85025; 85027; 87077; 87086; 87186; 94640; 94760; 96365; 96367; 96374; 96375; 99284-25; 99285-25; J0696; J1650; J1956; J2405; J3370; J7050

== ENCOUNTER 2018-12-09 11:38 | Inpatient (IN) | payer MEDICARE, OTHER ==
[~2018-12-09] VITALS: Ht 167.6 cm; Wt 160.0 kg
[~2018-12-09 11:38] MED LIST changes: +ACIDOPHILUS1 EAC1 PO; +CEFU250T47 PO; +CYCL10 PO; +DOXY100 PO; +FURO20 PO; +RISP.5 PO
[2018-12-09 13:44] LABS: BASOPHILS ABSOLUTE AUTO 0.02 K/mm3 (0.00-0.23); BASOPHILS PERCENT AUTO 0 % (0-2); EOSINOPHILS ABSOLUTE AUTO 0.18 K/mm3 (0.00-0.68); EOSINOPHILS PERCENT AUTO 3 % (0-6); Hemoglobin 10.1 g/dL (11.5-16.0); IMMATURE GRAN ABSOLUTE AUTO 0.02 K/mm3 (0.00-0.10); IMMATURE GRAN PERCENT AUTO 0 % (0-1); LYMPHOCYTES ABSOLUTE AUTO 1.07 K/mm3 (0.84-5.20); LYMPHOCYTES PERCENT AUTO 18 % (21-46); MONOCYTES ABSOLUTE AUTO 0.58 K/mm3 (0.16-1.47); MONOCYTES PERCENT AUTO 10 % (4-13); Mean Corpuscular HGB 22.5 pg (26.0-34.0); Mean Corpuscular HGB Conc 28.1 g/dL (31.5-36.5); Mean Corpuscular Volume 80 fL (80-100); Mean Platelet Volume 9.7 fL (9.1-12.4); NEUTROPHILS ABSOLUTE AUTO 4.14 K/mm3 (1.96-9.15); NEUTROPHILS PERCENT AUTO 69 % (41-73); Platelet Count 379 K/mm3 (150-400); RDW Coefficient Variation 16.1 % (11.7-14.2); RDW Standard Deviation 47.4 fL (35.1-46.3); Red Blood Cell Count 4.48 M/mm3 (3.80-5.20); White Blood Cell Count 6.01 K/mm3 (4.00-11.30)
[2018-12-09 14:06] LABS: Alanine Aminotransfer (ALT/SGP 25 U/L (12-78); Albumin, Blood 2.9 g/dL (3.4-5.0); Albumin/Globulin Ratio 0.6 (0.8-1.8); Alk Phos 135 U/L (50-136); Anion Gap 10 mmol/L (6-16); Aspartate Aminotrans (AST/SGOT 20 U/L (12-37); Bilirubin, Total 0.3 mg/dL (0.1-1.0); Blood Urea Nitrogen 15 mg/dL (8-24); Bun/Creatinine Ratio 24.4 (12.0-20.0); CO2, Blood 23 mmol/L (21-32); Calcium, Blood 8.6 mg/dL (8.5-10.1); Chloride, Blood 104 mmol/L (98-108); Creatinine, Blood 0.62 mg/dL (0.40-1.00); Globulin, Blood 4.7 g/dL (2.2-4.0); Glomerular Filtration Rate >60 (60-); Glucose, Blood 105 mg/dL (70-99); Potassium, Blood 3.7 mmol/L (3.5-5.5); Sodium, Blood 137 mmol/L (136-145); Total Protein, Blood 7.6 g/dL (6.4-8.2)
[2018-12-09] MEDS ORDERED: POTCHL20ER PO (17:13)
[2018-12-09] MEDS ORDERED: FURO40 PO (17:13)
[2018-12-09] MEDS ORDERED: Ferrous Sulfat325 M2 PO (17:14)
[2018-12-09] MEDS ORDERED: Fruity C250 MG PO (17:15)
[2018-12-09] MEDS ORDERED: FOLI1 PO (17:16)
[2018-12-10 05:33] LABS: White Blood Cell Count 5.06 K/mm3 (4.00-11.30)
[2018-12-10 05:34] LABS: BASOPHILS ABSOLUTE AUTO 0.01 K/mm3 (0.00-0.23); BASOPHILS PERCENT AUTO 0 % (0-2); EOSINOPHILS ABSOLUTE AUTO 0.16 K/mm3 (0.00-0.68); EOSINOPHILS PERCENT AUTO 3 % (0-6); Hematocrit 29.1 % (33.0-51.0); Hemoglobin 8.3 g/dL (11.5-16.0); IMMATURE GRAN ABSOLUTE AUTO 0.02 K/mm3 (0.00-0.10); IMMATURE GRAN PERCENT AUTO 0 % (0-1); LYMPHOCYTES ABSOLUTE AUTO 0.65 K/mm3 (0.84-5.20); LYMPHOCYTES PERCENT AUTO 13 % (21-46); MONOCYTES ABSOLUTE AUTO 0.55 K/mm3 (0.16-1.47); MONOCYTES PERCENT AUTO 11 % (4-13); Mean Corpuscular HGB 22.5 pg (26.0-34.0); Mean Corpuscular HGB Conc 28.5 g/dL (31.5-36.5); Mean Corpuscular Volume 79 fL (80-100); Mean Platelet Volume 9.8 fL (9.1-12.4); NEUTROPHILS ABSOLUTE AUTO 3.67 K/mm3 (1.96-9.15); NEUTROPHILS PERCENT AUTO 73 % (41-73); Platelet Count 291 K/mm3 (150-400); RDW Coefficient Variation 16.1 % (11.7-14.2); Red Blood Cell Count 3.69 M/mm3 (3.80-5.20)
[2018-12-10 05:49] LABS: Anion Gap 6 mmol/L (6-16); Blood Urea Nitrogen 12 mg/dL (8-24); Bun/Creatinine Ratio 19.5 (12.0-20.0); CO2, Blood 26 mmol/L (21-32); Chloride, Blood 111 mmol/L (98-108); Creatinine, Blood 0.61 mg/dL (0.40-1.00); Glomerular Filtration Rate >60 (60-); Glucose, Blood 98 mg/dL (70-99); Potassium, Blood 3.8 mmol/L (3.5-5.5); Sodium, Blood 143 mmol/L (136-145)
--- NOTE | 2018-12-10 07:15 | NUR ---
ADMISSION NOTE & SHIFT SUMMARY: PT NEW ADMISSION TO FLOOR FROM ED. PT TRANSFERRED TO BED INDEPENDENTLY c FWW. RLE WOUND OPEN TO AIR. PICTURES TAKEN FOR DOCUMENTATION PER CONSENT FROM PT. RLE WOUND IS WEEPING, BLISTERED, AND HAS WHITE PAPULES. PT ON ROOM AIR, RESP E/U. LS DIMINISHED T/O. TRATED 1X FOR PAIN IN RLE c PRN NORCO. NS RUNNING @ 200 ML/HR; IV PATENT; NO INFILTRATION. FIRST OF 2 BAGS. PT RECIEVED SCHEDULED IV ANITBIOTICS. A&O X 4, CALL LIGHT APPROPRIATE. WILL CONT TO MONITOR AND PROVIDE CARE UNTIL PRESUMED BY ONCOMING RN.
--- NOTE | 2018-12-10 11:36 | NUR ---
Pt known to me from previous admission when I completed her POLST at her and her Aunt's request with her Aunt Abbi present. Pt is illiterate and developmentally delayed. She lives with her Aunt Abbi. Pt's POLST was lost and the copy that was scanned to medical records had not been signed by a medical provider. I reviewed a copy of pt's previous POLST with her and completed a new one. Discussed with RN and , who signed new one before I gave pt her original in a manilla envelope and faxed updated/signed POLST to medical records. Pt has been readmitted due to ongoing, worsening lower extremity cellulitis and weeping wounds. She had been on PO antibiotics since her d/c from hospital 5 days ago. She developed a rash from one of the medications and went to see her PCP, who referred her to the ER. She is in contact isolation, lying in bed with chux pads under her legs due to weeping wounds. She denies pain or distress. Elsa does not display nonverbal indicators of pain, anxiety or distress at present. She was on phone with a relative who lives out of state. She is very child like in her insight and conversation. She was glad to have the original of the POLST with the options she specified. She has named her Aunt, Abbi Mcclellan, or [phone] as her surogate decision maker if she is unable to speak for herself re: health care decisions.
--- NOTE | 2018-12-10 12:46 | NUR ---
PT TO IMAGING FOR CT.
--- NOTE | 2018-12-10 13:23 | NUR ---
JOMAR TAYLOR ASKED FOR A CONSULT WITH DR. ALLEN. RN CALLED DR. ALLEN'S OFFICE, STAFF EXPLAINED HE WILL BE OUT OF TOWN UNTIL 12/15/2018.
--- NOTE | 2018-12-10 17:39 | NUR ---
THIS PT IS ALERT AND ORIENTED AND COOPERATIVE WITH CARE. SHE IS A SBA WITH HER FWW. SHE CALLS APPROPRIATELY FOR PAIN MEDICATIONS AND BATHROOM ASSISTANCE. SHE IS IN CONTACT ISOLATION FOR MRSA. SHE IS TAKING IV ANTIBIOTICS. SHE TOLD DR. MOTLEY TODAY THAT SHE WISHES TO HAVE HER LEG AMPUTATED TO END THE TROUBLE IT CAUSES HER. NO ACUTE CHANGES WITH HER TODAY. WILL CONTINUE TO MONITOR.
--- NOTE | 2018-12-11 07:48 | NUR ---
Rn summary: Patient has been alert and cooperative. Pt has cellulitis to rt lower leg. No drainage noted this shift. Pt medicated x1 for pain at midight with good relief. Pt was incontinent of urine during the night. She walked self to BR. IV to rt arm painful and redened. New IV to Left AC, positional. Pt in isolation for HX of MRSA. Pt uses the call light appropriately. IV antibiotics as ordered.
[2018-12-11] MEDS ORDERED: Juven1 EACH PO (13:36)
[2018-12-11] MEDS ORDERED: [UNRECOGNIZED DRUG - OTHER] PO (13:37)
[2018-12-11] MEDS ORDERED: SACC250C PO (13:38)
[2018-12-11] MEDS ORDERED: ZINC SULFATE PO (13:39)
[2018-12-11] MEDS ORDERED: Bactrim Ds Tab1 EACH PO (13:40)
--- NOTE | 2018-12-11 15:39 | NUR ---
discharge DR MCKEON IN TO SEE PT @ LUNCH TIME. STATE OK FOR PT TO GO HOME TODAY, STATE FOR PT TO RETURN TO ER ON SATURDAY WHEN DR SAENZ IS BACK IN TOWN FOR CONSULT R/T AMPUTATION OF R LOWER LEG. NEW SCRIPTS FAXED TO [facility]. IV D/C INTACT. PT AUNT (CAREGIVER) CONTACTED TO UPDATE & ANSWER QUESTIONS. WOUND CARE, [facility] PROVIDED RLE. [facility] CALLED FOR TRANSPORT HOME. D/C INSTRUCT PROVIDED. PT PROVIDED W/C ESCORT FROM HOSP, TAXI WAITING @ MAIN ENTRANCE.
== END 2018-12-11 15:59 | disposition home or self-care (01) | DRG 603 ==
LOC: ER 11:38 → MEDS 16:55 → ENPENDDIS 12-11 13:08 → MEDS 12-11 15:59
PROVIDERS: Nurse Practitioner Acute Care; Physician Assistant; ADMIT Internal Medicine
DX: L03.115 Cellulitis of right lower limb (principal); Z68.43 Body mass index [BMI] 50.0-59.9, adult; D50.9 Iron deficiency anemia, unspecified; E66.01 Morbid (severe) obesity due to excess calories; I10 Essential (primary) hypertension; D63.8 Anemia in other chronic diseases classified elsewhere; G25.81 Restless legs syndrome; Z86.73 Personal history of transient ischemic attack (TIA), and cerebral infarction without residual deficits; Z86.14 Personal history of Methicillin resistant Staphylococcus aureus infection; Z87.891 Personal history of nicotine dependence; Z66 Do not resuscitate
CPT/HCPCS: 36415; 73701; 80048; 80053; 83605; 85025; 87040; 87070; 87205; 93922; 96365; 96366; 99284-25; J0692; J1650; J3370; J7030; J7050; Q9967

== ENCOUNTER 2018-12-18 00:26 | Day surgery (SDC) | payer MEDICARE, OTHER ==
[~2018-12-18 00:26] MED LIST changes: +Bactrim Ds Tab1 EACH PO; +FOLI1 PO; +Ferrous Sulfat325 M2 PO; +POTCHL20ER PO; +ZINC SULFATE PO; +[UNRECOGNIZED DRUG - OTHER] PO
== END 2018-12-18 22:44 | disposition home or self-care (01) ==
LOC: WOUND 00:26
DX: L03.115 Cellulitis of right lower limb (principal); L97.212 Non-pressure chronic ulcer of right calf with fat layer exposed; I73.9 Peripheral vascular disease, unspecified; I83.11 Varicose veins of right lower extremity with inflammation; I10 Essential (primary) hypertension; E66.01 Morbid (severe) obesity due to excess calories
CPT/HCPCS: 87070; 87205; 88305; 88312

== ENCOUNTER 2018-12-18 09:42 | Emergency (ER) | payer MEDICARE, OTHER ==
[~2018-12-18] VITALS: Ht 167.6 cm; Wt 154.2 kg
[2018-12-18 12:07] LABS: BASOPHILS ABSOLUTE AUTO 0.02 K/mm3 (0.00-0.23); BASOPHILS PERCENT AUTO 0 % (0-2); EOSINOPHILS PERCENT AUTO 2 % (0-6); Hematocrit 33.9 % (33.0-51.0); Hemoglobin 9.6 g/dL (11.5-16.0); IMMATURE GRAN ABSOLUTE AUTO 0.01 K/mm3 (0.00-0.10); IMMATURE GRAN PERCENT AUTO 0 % (0-1); LYMPHOCYTES ABSOLUTE AUTO 0.82 K/mm3 (0.84-5.20); LYMPHOCYTES PERCENT AUTO 18 % (21-46); MONOCYTES ABSOLUTE AUTO 0.37 K/mm3 (0.16-1.47); MONOCYTES PERCENT AUTO 8 % (4-13); Mean Corpuscular HGB 22.4 pg (26.0-34.0); Mean Corpuscular HGB Conc 28.3 g/dL (31.5-36.5); Mean Corpuscular Volume 79 fL (80-100); Mean Platelet Volume 10.4 fL (9.1-12.4); NEUTROPHILS ABSOLUTE AUTO 3.23 K/mm3 (1.96-9.15); NEUTROPHILS PERCENT AUTO 71 % (41-73); Platelet Count 305 K/mm3 (150-400); RDW Coefficient Variation 16.4 % (11.7-14.2); RDW Standard Deviation 46.8 fL (35.1-46.3); Red Blood Cell Count 4.28 M/mm3 (3.80-5.20); White Blood Cell Count 4.55 K/mm3 (4.00-11.30)
[2018-12-18 12:13] LABS: Alanine Aminotransfer (ALT/SGP 20 U/L (12-78); Albumin/Globulin Ratio 0.7 (0.8-1.8); Alk Phos 98 U/L (50-136); Anion Gap 7 mmol/L (6-16); Aspartate Aminotrans (AST/SGOT 18 U/L (12-37); Bilirubin, Total 0.4 mg/dL (0.1-1.0); Blood Urea Nitrogen 14 mg/dL (8-24); Bun/Creatinine Ratio 19.7 (12.0-20.0); CO2, Blood 26 mmol/L (21-32); Calcium, Blood 8.7 mg/dL (8.5-10.1); Chloride, Blood 107 mmol/L (98-108); Creatinine, Blood 0.71 mg/dL (0.40-1.00); Globulin, Blood 4.3 g/dL (2.2-4.0); Glomerular Filtration Rate >60 (60-); Glucose, Blood 79 mg/dL (70-99); Potassium, Blood 3.9 mmol/L (3.5-5.5); Sodium, Blood 140 mmol/L (136-145); Total Protein, Blood 7.3 g/dL (6.4-8.2); Troponin I <0.015 ng/mL (0.000-0.040)
== END 2018-12-18 13:28 | disposition home or self-care (01) ==
LOC: ER 09:42
PROVIDERS: Emergency Medicine
DX: R07.9 Chest pain, unspecified (principal); S81.801D Unspecified open wound, right lower leg, subsequent encounter; X58.XXXD Exposure to other specified factors, subsequent encounter; Z87.891 Personal history of nicotine dependence; Z88.0 Allergy status to penicillin; Z88.5 Allergy status to narcotic agent; Z88.8 Allergy status to other drugs, medicaments and biological substances; Z79.899 Other long term (current) drug therapy; Z79.891 Long term (current) use of opiate analgesic
CPT/HCPCS: 36415; 71046; 80053; 84484; 85025; 93005; 93010; 99285-25

== ENCOUNTER 2018-12-22 00:31 | Day surgery (SDC) | payer MEDICARE, OTHER ==
[2018-12-23] MEDS ORDERED: Gentak3.5 GM (10:46)
[2018-12-23] MEDS ORDERED: CIPR500 PO (10:47)
[2018-12-23] MEDS ORDERED: CEPH500 PO (11:53)
== END 2018-12-22 22:58 | disposition home or self-care (01) ==
LOC: WOUND 00:31
DX: L03.115 Cellulitis of right lower limb (principal); L97.212 Non-pressure chronic ulcer of right calf with fat layer exposed; I73.9 Peripheral vascular disease, unspecified; I83.11 Varicose veins of right lower extremity with inflammation; E66.01 Morbid (severe) obesity due to excess calories; Z79.01 Long term (current) use of anticoagulants
CPT/HCPCS: G0463

== ENCOUNTER 2018-12-23 08:44 | Emergency (ER) | payer MEDICARE, OTHER ==
[~2018-12-23] VITALS: Ht 167.6 cm; Wt 154.2 kg
[2018-12-23] MEDS ORDERED: Gentak3.5 GM (10:46)
[2018-12-23] MEDS ORDERED: CIPR500 PO (10:47)
[2018-12-23 10:49] LABS: Source, Urine Clean Catch
[2018-12-23 10:56] LABS: Bilirubin, Urine Neg (Neg); Blood, Urine Neg (Neg); Glucose Qualitative, Urine Neg (Neg); Ketones, Urine Neg (Neg); Leukocyte Esterase, Urine 1+ (Neg); Nitrite, Urine Neg (Neg); Protein, Urine 1+ (Neg); Urobilinogen, Urine 1+ (Normal)
[2018-12-23 11:26] LABS: Appearance, Urine Hazy (Clear); Color, Urine Yellow (P-Yellow)
[2018-12-23 11:27] LABS: Bacteria Few /hpf; Calcium Oxalate Crystals Few /hpf; Red Blood Cells, Urine Not Seen /hpf (0-2); Squamous Epithelial Cells Mod /hpf (Few); Yeast/Fungi Urine Few /hpf
[2018-12-23] MEDS ORDERED: CEPH500 PO (11:53)
== END 2018-12-23 12:43 | disposition home or self-care (01) ==
LOC: ER 08:44
PROVIDERS: Physician Assistant
DX: N39.0 Urinary tract infection, site not specified (principal); L03.115 Cellulitis of right lower limb; Z88.0 Allergy status to penicillin; Z88.5 Allergy status to narcotic agent; Z88.8 Allergy status to other drugs, medicaments and biological substances; Z79.899 Other long term (current) drug therapy; Z87.891 Personal history of nicotine dependence
CPT/HCPCS: 36415; 81001; 87077; 87086; 87186; 96372; 99283-25; J0696

== ENCOUNTER 2018-12-30 09:19 | Inpatient (IN) | payer MEDICARE, OTHER ==
[~2018-12-30] VITALS: Ht 167.6 cm; Wt 162.6 kg
[~2018-12-30 09:19] MED LIST changes: +CIPR500 PO; +Gentak3.5 GM
[2018-12-30 12:55] LABS: Source, Urine Clean Catch
[2018-12-30 12:59] LABS: Bilirubin, Urine Neg (Neg); Blood, Urine 1+ (Neg); Glucose Qualitative, Urine Neg (Neg); Ketones, Urine Neg (Neg); Leukocyte Esterase, Urine 2+ (Neg); Nitrite, Urine Neg (Neg); Protein, Urine Neg (Neg); Specific Gravity, Urine 1.005 (1.003-1.022); Urobilinogen, Urine NORM (Normal)
[2018-12-30 13:17] LABS: Appearance, Urine Hazy (Clear); Color, Urine Yellow (P-Yellow)
[2018-12-30 13:19] LABS: Bacteria Mod /hpf; Red Blood Cells, Urine 0-2 /hpf (0-2); Squamous Epithelial Cells Many /hpf (Few); Yeast/Fungi Urine Few /hpf
[2018-12-30 13:52] LABS: BASOPHILS ABSOLUTE AUTO 0.02 K/mm3 (0.00-0.23); BASOPHILS PERCENT AUTO 0 % (0-2); EOSINOPHILS ABSOLUTE AUTO 0.02 K/mm3 (0.00-0.68); EOSINOPHILS PERCENT AUTO 0 % (0-6); Hematocrit 36.3 % (33.0-51.0); Hemoglobin 10.7 g/dL (11.5-16.0); IMMATURE GRAN ABSOLUTE AUTO 0.09 K/mm3 (0.00-0.10); IMMATURE GRAN PERCENT AUTO 1 % (0-1); LYMPHOCYTES ABSOLUTE AUTO 0.86 K/mm3 (0.84-5.20); LYMPHOCYTES PERCENT AUTO 6 % (21-46); MONOCYTES ABSOLUTE AUTO 0.63 K/mm3 (0.16-1.47); MONOCYTES PERCENT AUTO 4 % (4-13); Mean Corpuscular HGB 22.2 pg (26.0-34.0); Mean Corpuscular HGB Conc 29.5 g/dL (31.5-36.5); Mean Platelet Volume 10.3 fL (9.1-12.4); NEUTROPHILS ABSOLUTE AUTO 13.76 K/mm3 (1.96-9.15); NEUTROPHILS PERCENT AUTO 90 % (41-73); Platelet Count 229 K/mm3 (150-400); RDW Coefficient Variation 16.9 % (11.7-14.2); RDW Standard Deviation 45.2 fL (35.1-46.3); Red Blood Cell Count 4.83 M/mm3 (3.80-5.20); White Blood Cell Count 15.38 K/mm3 (4.00-11.30)
[2018-12-30 14:03] LABS: Mean Corpuscular Volume 75 fL (80-100)
[2018-12-30 14:10] LABS: Alanine Aminotransfer (ALT/SGP 21 U/L (12-78); Albumin/Globulin Ratio 0.7 (0.8-1.8); Alk Phos 144 U/L (50-136); Anion Gap 8 mmol/L (6-16); Aspartate Aminotrans (AST/SGOT 32 U/L (12-37); Blood Urea Nitrogen 7 mg/dL (8-24); CO2, Blood 25 mmol/L (21-32); Calcium, Blood 8.5 mg/dL (8.5-10.1); Chloride, Blood 103 mmol/L (98-108); Creatinine, Blood 0.58 mg/dL (0.40-1.00); Globulin, Blood 4.6 g/dL (2.2-4.0); Glomerular Filtration Rate >60 (60-); Glucose, Blood 104 mg/dL (70-99); Potassium, Blood 4.1 mmol/L (3.5-5.5); Sodium, Blood 136 mmol/L (136-145); Total Protein, Blood 7.6 g/dL (6.4-8.2)
[2018-12-30] MEDS ORDERED: ACET325 PO (15:02)
--- NOTE | 2018-12-30 19:01 | NUR ---
ADMIT NOTE/NURSE HANDOFF RECEIVED HANDOFF FROM NURSE CORONADO AT 1735 HOURS. PT IS DNR, ADMITTED WITH CELLULITIS OF RT. LEG. IS ON CONTACT PRECAUTIONS FOR ESBL IN THE WOUND. PT IS INDEPENDENT TO THE BSC. SHE HAS A 22 IV IN THE RT WRIST RUNNING W/VANCO UPON TRANSFER TO MEDICAL FLOOR. PT TRANSFERED WNL. PT WAS ORIENTED TO THE UNIT. PT RUNS TACHYCARDIC ACCORDING TO ED. 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 PT IS MORBIDLY OBESE. SHE LIVES AT HOME WITH HER AUNT IN [place]. PT WILL BEGIN 2 BAGS OF NS AT 100 ML/HR WHEN VANCO IS COMPLETE.
[2018-12-30 22:15] LABS: Source, Urine Catheter
[2018-12-30 22:17] LABS: Bilirubin, Urine Neg (Neg); Blood, Urine Neg (Neg); Glucose Qualitative, Urine Neg (Neg); Ketones, Urine Neg (Neg); Leukocyte Esterase, Urine 2+ (Neg); Nitrite, Urine Neg (Neg); Protein, Urine Neg (Neg); Urobilinogen, Urine NORM (Normal)
[2018-12-30 22:23] LABS: Appearance, Urine Hazy (Clear); Color, Urine Yellow (P-Yellow)
[2018-12-30 22:24] LABS: Bacteria Few /hpf; Red Blood Cells, Urine Not Seen /hpf (0-2); Squamous Epithelial Cells Many /hpf (Few)
--- NOTE | 2018-12-31 04:00 | NUR ---
SHIFT SUMMARY PT HAS SLEPT ON AND OFF T/O THE NIGHT. CELLULITS TO RIGHT LEG IS WEEPING, AND SHE REQUIRES ABSORBANT PADS UNDERNEATH HER LEGS TO ABSORB THE DRAINAGE. RIGHT LEG ELEVATED ON PILLOWS. PT REPORTS PAIN IN HER RIGHT LEG AND HAS BEEN MEDICATED WITH NORCO. IV FLUIDS INFUSING ORDERED. PT A/OX4, PLESANT. THERE HAVE BEEN NO ACUTE CHANGES. WILL CONTINUE TO MONITOR AND REPORT TO ONCOMING RN.
[2018-12-31 04:55] LABS: BASOPHILS ABSOLUTE AUTO 0.01 K/mm3 (0.00-0.23); BASOPHILS PERCENT AUTO 0 % (0-2); EOSINOPHILS PERCENT AUTO 1 % (0-6); Hematocrit 29.8 % (33.0-51.0); Hemoglobin 8.4 g/dL (11.5-16.0); IMMATURE GRAN ABSOLUTE AUTO 0.02 K/mm3 (0.00-0.10); IMMATURE GRAN PERCENT AUTO 0 % (0-1); LYMPHOCYTES ABSOLUTE AUTO 0.83 K/mm3 (0.84-5.20); LYMPHOCYTES PERCENT AUTO 12 % (21-46); MONOCYTES ABSOLUTE AUTO 0.88 K/mm3 (0.16-1.47); MONOCYTES PERCENT AUTO 12 % (4-13); Mean Corpuscular HGB 21.7 pg (26.0-34.0); Mean Corpuscular HGB Conc 28.2 g/dL (31.5-36.5); Mean Corpuscular Volume 77 fL (80-100); Mean Platelet Volume 10.3 fL (9.1-12.4); NEUTROPHILS ABSOLUTE AUTO 5.32 K/mm3 (1.96-9.15); NEUTROPHILS PERCENT AUTO 74 % (41-73); Platelet Count 219 K/mm3 (150-400); RDW Coefficient Variation 17.1 % (11.7-14.2); RDW Standard Deviation 47.9 fL (35.1-46.3); Red Blood Cell Count 3.87 M/mm3 (3.80-5.20); White Blood Cell Count 7.16 K/mm3 (4.00-11.30)
[2018-12-31 05:14] LABS: Anion Gap 6 mmol/L (6-16); Blood Urea Nitrogen 10 mg/dL (8-24); Bun/Creatinine Ratio 16.3 (12.0-20.0); CO2, Blood 27 mmol/L (21-32); Calcium, Blood 8.4 mg/dL (8.5-10.1); Chloride, Blood 106 mmol/L (98-108); Creatinine, Blood 0.61 mg/dL (0.40-1.00); Glomerular Filtration Rate >60 (60-); Glucose, Blood 112 mg/dL (70-99); Potassium, Blood 3.8 mmol/L (3.5-5.5); Sodium, Blood 139 mmol/L (136-145)
--- NOTE | 2018-12-31 17:54 | NUR ---
SHIFT SUMMARY PT HAS HAD NO ACUTE CHANGES THIS SHIFT, MEDICATED PER MAR FOR PAIN, NO OTHER COMPLAINTS OF ANY KIND. PT SITTING UP IN BED EATING DINENR, WILL CONT TO MONITOR UNTIL REPORT GIVEN TO EDWARD LOO.
--- NOTE | 2019-01-01 03:43 | NUR ---
SHIFT SUMMARY THE PT WAS ADMITTED FOR CELLULITIS OF THE RLE. DNR. REGULAR DIET. Q 2 HR TURNS. ELEVATE RLE ABOVE HIP LEVEL. TELE-NSR AT A RATE OF 70 PER HOSPITAL LIBRARIAN. NO MECHANICAL VTE PROPHYLAXIS. LOVENOX FOR DVT PROPHYLAXIS. CONTACT ISOLATION FOR ESBL IN THE RLE WOUND. ABD PADS WITH KURLED TO RLE. WOUND CARE ORDERS FROM WOUND CLINIC ARE IN THE FRONT OF CHART. DAY NURSE NEEDS TO CONSULT WITH MD IN AM TO DETERMINE IF WANTING TO CONTINUE THESE WOUND CARE ORDERS OR NOT THERE ARE NO ORDERS IN CHART AT THIS TIME AND WOUND WAS PREVIOUSLY HANNAH BUT WHEEPING EXCESSIVELY. INDEPENDENT TO BSC. 20G IV TO L FA. THE PT LIVES AT HOME WITH HER AUNT. NS AT 100 MLS/HR. THE PT PRESENTED TO THE ED WITH C/O R LOWER LEG PAIN AND FOUL ODOR. THE PT HAS A HISTORY OF A CHRONIC R LOWER EXTREMITY WOUND ONGOING FOR 20 YEARS AND IS SEEN OUTPATIENT BY THE WOUND CLINIC PER REPORT. THE PT STATES THAT DR. ALLEN HAS REFERRED THE PT FOR A LAPBAND SURGERY AND IF ABLE TO LOSE WEIGHT THEY MAY CONSIDER AMPUTATION. THE PT HAS APPEARED TO SLEEP COMFORTABLY MOST OF THE NIGHT BUT IS AWAKE AT THIS TIME USEING THE BATHROOM AND COMMUNICATION STUDIES PROFESSOR COMPLETEING BED CHANGE. NO APPARENT SIGNS OF ACUTE DISTRESS. ABLE TO MAKE NEEDS KNWON AND CALL LIGHT IN REACH.
[2019-01-01] MEDS ORDERED: Vibramycin100 MG PO (11:48)
[2019-01-01] MEDS ORDERED: SACC250C PO (11:49)
--- NOTE | 2019-01-01 13:01 | NUR ---
DISCHARGE DISCHARGE MEDICATIONS AND INSTRUCTIONS EXPLAINED TO PATIENT. PATIENT STATED UNDERSTANDING. IV REMOVED WITHOUT DIFFICULTY. BELONGINGS WITH PATIENT. PATIENT TRANSPORTED VIA WHEELCHAIR TRANSPORT BY [facility].
== END 2019-01-01 12:55 | disposition home or self-care (01) | DRG 872 ==
LOC: ER 09:19 → ERHOLD 15:33 → MEDS 18:31 → ENPENDDIS 01-01 09:30 → MEDS 01-01 12:55
PROVIDERS: Nurse Practitioner Acute Care; Physician Assistant; ADMIT Hospitalist
DX: A41.9 Sepsis, unspecified organism (principal); L03.115 Cellulitis of right lower limb; N39.0 Urinary tract infection, site not specified; Z68.43 Body mass index [BMI] 50.0-59.9, adult; E66.01 Morbid (severe) obesity due to excess calories; D50.9 Iron deficiency anemia, unspecified; Q82.0 Hereditary lymphedema; Z88.5 Allergy status to narcotic agent; Z88.0 Allergy status to penicillin; Z88.8 Allergy status to other drugs, medicaments and biological substances; Z91.018 Allergy to other foods; Z79.899 Other long term (current) drug therapy; Z87.891 Personal history of nicotine dependence; Z86.73 Personal history of transient ischemic attack (TIA), and cerebral infarction without residual deficits; Z86.14 Personal history of Methicillin resistant Staphylococcus aureus infection
CPT/HCPCS: 36415; 80048; 80053; 81001; 83605; 84145; 85025; 85651; 86140; 87040; 87086; 93005; 93010; 99285-25; J0692; J0696; J1650; J1885; J3370; J7030; J7050; J7120